=== PATIENT | female | born 1995 | race Caucasian/White ===

== ENCOUNTER 2017-02-28 19:28 | Emergency (ER) | payer BC, OTHER ==
[2017-02-28 19:33] VITALS: RESP 16
--- NOTE | 2017-02-28 19:52 | EDPHY ---
H & P Stated Complaint: UTI symptoms Time Seen by Provider: 02/28/17 19:34 HPI/ROS: CHIEF COMPLAINT: "I think I have UTI " HISTORY OF PRESENT ILLNESS: 21-year-old immunocompetent female complaining of increased urinary frequency, dysuria , hematuria, started shortly prior to arrival. Prior history of UTI, feels similar. No back or flank pain. No nausea or vomiting. No abdominal pain. No cold or flu-like symptoms. No myalgias. REVIEW OF SYSTEMS: A ten point review of systems was performed and is negative with the exception of the items mentioned in the HPI PAST MEDICAL & SURGICAL HISTORY: No pertinent medical or surgical history SOCIAL HISTORY:nonsmoker PHYSICAL EXAM (Prior to examination, patient consented to physical exam, hands were washed and my usual and customary physical exam procedures followed) 1) GENERAL: Well-developed, well-nourished, alert and oriented. Appears to be in no acute distress. 2) HEAD: Normocephalic, atraumatic 3) HEENT: Pupils equal, round, reactive to light bilaterally. Sclera anicteric. 4) NECK: Full range of motion, no meningeal signs. 5) LUNGS: Clear auscultation bilaterally, no wheezes, no rhonchi, no retractions. 6) HEART: Regular rate and rhythm, no murmur, no heave, no gallop. 7) ABDOMEN: No guarding, no rebound, no focal tenderness, negative McBurney's, negative Dai's, negative Rovsing's, negative peritoneal sign, unable to elicit any abdominal pain 8) MUSCULOSKELETAL: No peripheral edema or discoloration. 9) BACK: No CVA tenderness. 10) SKIN: No rash, no petechiae. 11) Psychiatric: Patient is oriented X 3, there is no agitation. DIFFERENTIAL DIAGNOSIS: in no particular order including but not limited to cystitis, pyelonephritis, urosepsis - Personal History LMP (Females 10-55): 22-28 Days Ago Current Tetanus/Diphtheria Vaccine: Yes Current Tetanus Diphtheria and Acellular Pertussis (TDAP): Yes - Medical/Surgical History Hx Asthma: No Hx Chronic Respiratory Disease: No Hx Diabetes: No Hx Cardiac Disease: No Hx Renal Disease: No Hx Cirrhosis: No Hx Alcoholism: No Hx HIV/AIDS: No Hx Splenectomy or Spleen Trauma: No Other PMH: denies - Social History Smoking Status: Never smoked Constitutional: Initial Vital Signs Temperature (C) 37.1 C 02/28/17 19:29 Heart Rate 76 02/28/17 19:29 Respiratory Rate 16 02/28/17 19:29 Blood Pressure 148/94 H 02/28/17 19:29 O2 Sat (%) 96 02/28/17 19:29 O2 Delivery Mode Room Air Allergies/Adverse Reactions: No Known Allergies Allergy (Unverified 02/28/17 19:33) Home Medications: Medication Instructions Recorded Cephalexin [Keflex] 500 mg PO TID 7 Days cap 02/28/17 Phenazopyridine HCl [Pyridium] 200 mg PO PC #10 tab 02/28/17 Medical Decision Making - Data Points Laboratory Results: 02/28/17 19:37 Urine Color Pending Urine Appearance Pending Urine pH Pending Ur Specific [place] Pending Urine Protein Pending Urine Ketones Pending Urine Blood Pending Urine Nitrate Pending Urine Bilirubin Pending Urine Urobilinogen Pending Ur Leukocyte Esterase Pending Urine RBC Pending Urine WBC Pending Ur Epithelial Cells Pending Urine Glucose Pending Departure - Departure Disposition: Home, Routine, Self-Care Clinical Impression: Urinary tract infection Qualifiers: Urinary tract infection type: acute cystitis Hematuria presence: with hematuria Qualified Code(s): N30.01 - Acute cystitis with hematuria Condition: Good Instructions: Urinary Tract Infection in Women (ED) Additional Instructions: Return to the ER immediately if you experience fevers/chills, flu like symptoms , inability to tolerate oral intake, nausea or vomiting, or any other symptoms that concern you. Referrals: [facility],. [Clinic] - 2-3 days, call for appt. Prescriptions: Cephalexin [Keflex] 500 mg PO TID 7 Days cap Phenazopyridine HCl [Pyridium] 200 mg PO PC #10 tab
[2017-02-28] MEDS ORDERED: PHENAZOPYRIDINE HCL 200 MG TAB PO ONE (19:54)
[2017-02-28] MEDS ORDERED: CEPHALEXIN 500 MG CAP PO ONE (19:55)
[2017-02-28 20:21] VITALS: BP 130/109; PULSE 80; TEMP 98.4; O2SAT 98
== END 2017-02-28 20:20 | disposition home or self-care (01) ==
DX: N30.01 Acute cystitis with hematuria (principal); B96.89 Other specified bacterial agents as the cause of diseases classified elsewhere